=== PATIENT | female | born 1990 | race African-American/Black ===

== ENCOUNTER 2022-04-06 13:53 | Outpatient (CLI) | payer OTHER, SELFPAY ==
--- NOTE | 2022-04-06 | ECG_ITS ---
Measurements Intervals [place] Rate: 87 P: 76 [place]: 165 QRS: 40 QRSD: 72 T: 25 QT: 344 QTc: 414 Interpretive Statements SINUS RHYTHM POSSIBLE V2 LEAD MISPLACEMENT CONSIDER ANTEROSEPTAL INFARCT, AGE INDETERMINATE ABNORMAL ECG Electronically Signed On 04-06-2022 14:39:30 CDT by Abdi Beltran D.O.
== END 2022-04-06 13:54 | disposition home or self-care (01) ==
PROVIDERS: PCP Physician Assistant; Visit Provider Physician Assistant
DX: N64.4 Mastodynia (principal)
CPT/HCPCS: 93005

== ENCOUNTER 2022-04-13 12:00 | Outpatient (CLI) | payer OTHER, SELFPAY ==
--- NOTE | ~2022-04-13 | MMUS_ITS ---
EXAMINATION: MM diagnostic stephan BI w [place], US breast BI complete HISTORY: Left breast pain TECHNIQUE: Additional 3-D tomosynthesis images of the breasts were performed and synthetic 2-D images were generated. CAD analysis was submitted and interpreted. High resolution bilateral complete breas t ultrasound was performed. COMPARISON: None BREAST PARENCHYMAL COMPOSITION: The breasts are extremely dense, which lowers the sensitivity of mamm ography FINDINGS: MAMMOGRAPHIC FINDINGS: There are no suspicious masses, calcifications or architectural distortion in either breast to sugges t malignancy. ULTRASOUND: Complete bilateral US of all 4 quadrants of the breasts and retroareolar region was reviewed. Normal heterogeneous echotexture without focal solid or cystic mass. IMPRESSION: 1. No evidence for malignancy in either breast. 2. Routine yearly screening mammogram and regular clinical breast examination are recommended. BI-RADS Category 1: Negative Reviewed, dictated and finalized at location A. IMPRESSION: 1. No evidence for malignancy in either breast. 2. Routine yearly screening mammogram and regular clinical breast examination a re recommended. BI-RADS Category 1: Negative
== END 2022-04-13 12:01 | disposition home or self-care (01) ==
LOC: ANHIMG 12:05
PROVIDERS: PCP Physician Assistant; Visit Provider Physician Assistant
DX: N64.4 Mastodynia (principal)
CPT/HCPCS: 76641; 77062; 77066; G0279

== ENCOUNTER 2022-07-02 10:40 | Outpatient (CLI) | payer OTHER, SELFPAY ==
--- NOTE | ~2022-07-02 | MR_ITS ---
EXAMINATION: MR shoulder LT wo con DATE: 07/02/2022 11:34 INDICATION: Left shoulder pain with decreased range of motion TECHNIQUE: Magnetic resonance imaging (MRI) of the left shoulder was performed without intravenous co ntrast. Sequences included axial PD-weighted FS FSE, coronal oblique PD-weighted FS FSE, coronal obli que T2-weighted FS FSE, sagittal PD-weighted FS FSE, and sagittal T1-weighted SE. COMPARISON: None. FINDINGS: Evaluation mildly limited by limited by small amount of motion artifact on a few of the sequences, mo st prominent on the sagittal T1-weighted sequence. Coracoacromial arch: The acromion undersurface is curved in morphology (type II). The coracoacromial ligament is normal. A cromioclavicular joint is normal. Rotator cuff: The supraspinatus, infraspinatus and teres minor tendons are normal. The subscapularis tendon is norm al. Normal rotator cuff muscle bulk and signal. Biceps tendon, glenoid labrum and glenohumeral cartilage: Long head of the biceps tendon is normal. Glenohumeral cartilage is normal. Linear increased signal b etween the coronoid cortex and the base of the 1:00 position of the anterosuperior glenoid labrum whi ch could represent a normal sublabral foramen are more caudally at the 12:00 position on series 9, im age 12 the linear increased signal appears to extend more peripherally into the substance of the base labrum which is more consistent with a small labral tear. Remainder of the labrum appears normal. Fluid: Physiologic amount of fluid in the glenohumeral joint and biceps tendon sheath. No loose osteochondr al bodies. No abnormal fluid signal in the subacromial/subdeltoid bursa to suggest bursitis. Bones: Normal marrow signal with no edema, fracture or abnormal marrow replacing process. Mild cystic change at the greater tuberosity. IMPRESSION: 1. Likely small tear at the anterosuperior glenoid labrum. Reviewed, dictated and finalized at location A.
== END 2022-07-02 10:41 | disposition home or self-care (01) ==
PROVIDERS: PCP Physician Assistant; Visit Provider Physician Assistant
DX: M25.512 Pain in left shoulder (principal)
CPT/HCPCS: 73221

== ENCOUNTER 2023-01-07 13:40 | Outpatient (CLI) | payer OTHER, SELFPAY ==
--- NOTE | ~2023-01-07 | XR_ITS ---
EXAMINATION: XR lumbar spine 2-3V DATE: 01/07/2023 14:09 INDICATION: Low back pain TECHNIQUE: Anteroposterior and lateral views of the lumbar spine, and cone-down lateral view of the l umbosacral junction were obtained. COMPARISON: None. FINDINGS: There are 2 mm of retrolisthesis of L5 on S1. There is mild loss of intervertebral disc spa ce height at L5-S1. The vertebral body heights are maintained. There is no fracture. The bowel gas pa ttern is normal. A moderate volume of colonic stool is present. IMPRESSION: 1. Mild lumbar spondylosis without acute findings. Reviewed, dictated and finalized at location B.
== END 2023-01-07 13:41 | disposition home or self-care (01) ==
PROVIDERS: PCP Physician Assistant; Visit Provider Physician Assistant
DX: M47.816 Spondylosis without myelopathy or radiculopathy, lumbar region (principal)
CPT/HCPCS: 72100